=== PATIENT | female | born 1965 | race Caucasian/White ===

== ENCOUNTER → 2017-08-12 | Outpatient (CLI) | payer BC ==
[2015-05-22 08:00] VITALS: BP 91/51
[~2017-08-12] MED LIST: ASPI-630 PO; BUSP15TA PO; DULO60CA6 PO; LECI400C PO; MONT10TA9 PO; OLME1TAB23 PO; OMEP40CA5 PO
== END | disposition home or self-care (01) ==
LOC: SURG 12:43
PROVIDERS: ATTEND Anesthesiology Pain Medicine
DX: M54.5 Low back pain (principal); K21.9 Gastro-esophageal reflux disease without esophagitis; I10 Essential (primary) hypertension; Z98.890 Other specified postprocedural states
CPT/HCPCS: 99204

== ENCOUNTER → 2017-11-16 | Outpatient (CLI) | payer BC ==
[2015-05-22 08:00] VITALS: BP 91/51
[~2017-11-16] MED LIST changes: +BUPIVACAINE MPF 0.25% 10 ML VIAL. ONE; +IOHEXOL 300 MG/ML 50 ML VIAL. ONE; +LIDOCAINE 1% PF 30 ML VIAL. ONE; +methylPREDNISolone ACETATE 80 MG/ML VIAL. ONE
== END | disposition home or self-care (01) ==
LOC: SURG 13:01
PROVIDERS: ATTEND Anesthesiology Pain Medicine
DX: M16.11 Unilateral primary osteoarthritis, right hip (principal); I10 Essential (primary) hypertension
CPT/HCPCS: 20611; J1040; J2001; J3490; Q9967

== ENCOUNTER → 2017-12-01 | Outpatient (CLI) | payer BC ==
[2015-05-22 08:00] VITALS: BP 91/51
[~2017-12-01] MED LIST changes: -BUPIVACAINE MPF 0.25% 10 ML VIAL. ONE; -IOHEXOL 300 MG/ML 50 ML VIAL. ONE; -LIDOCAINE 1% PF 30 ML VIAL. ONE; -methylPREDNISolone ACETATE 80 MG/ML VIAL. ONE
== END | disposition home or self-care (01) ==
LOC: SURG 12:15
PROVIDERS: ATTEND Anesthesiology Pain Medicine
DX: M16.12 Unilateral primary osteoarthritis, left hip (principal); I10 Essential (primary) hypertension; Z87.39 Personal history of other diseases of the musculoskeletal system and connective tissue; K44.9 Diaphragmatic hernia without obstruction or gangrene; Z98.890 Other specified postprocedural states; Z90.710 Acquired absence of both cervix and uterus
CPT/HCPCS: 20610; 20611; 77002

== ENCOUNTER → 2021-06-16 | Outpatient (CLI) | payer BC ==
[2015-05-22 08:00] VITALS: BP 91/51
[~2021-06-16] MED LIST changes: -DULO60CA6 PO; +DULO60CA7 PO; +MONT10TA80 PO; -MONT10TA9 PO; -OMEP40CA5 PO; +OMEP40CA7 PO
[2021-06-16 23:06] LABS: CA 125 3.3 U/mL (0.0-38.1)
== END ==
LOC: LAB 15:59
PROVIDERS: ATTEND Obstetrics & Gynecology
DX: N83.209 Unspecified ovarian cyst, unspecified side (principal)
CPT/HCPCS: 36415; 86304; 86305